=== PATIENT | female | born 1980 | race Caucasian/White ===

== ENCOUNTER 2017-10-11 13:30 | Inpatient (IN) | payer OTHER ==
[~2017-10-11] VITALS: Ht 177.8 cm; Wt 81.6 kg
[2017-10-11] MEDS ORDERED: PROZAC40 MG PO (13:49)
[2017-10-11] MEDS ORDERED: CLONAZEPAM1 MG PO (13:50)
[2017-10-14] MEDS ORDERED: DOCUSATE SODIU100 MG PO (09:22)
[2017-10-14] MEDS ORDERED: GABAPENTIN800 MG PO (09:22)
[2017-10-14] MEDS ORDERED: AMOX-CLAV 875-1 EACH PO (09:23)
[2017-10-14] MEDS ORDERED: PERCOCET 5-3251 EACH PO (09:23)
[2017-10-14] MEDS ORDERED: ACETAMINOPHEN-1 EAC2 PO (11:09)
== END 2017-10-14 12:00 | disposition home or self-care (01) | DRG 520 ==
LOC: O/R 10-13 05:59 → SURH 10-13 09:45 → PED 10-13 15:19
PROVIDERS: Orthopaedic Surgery Orthopaedic Surgery of the Spine
PROC: 0ST20ZZ Resection of Lumbar Vertebral Disc, Open Approach (ICD-10-PCS; 2017-10-13)
PROC: 00NY0ZZ Release Lumbar Spinal Cord, Open Approach (ICD-10-PCS; principal; 2017-10-13 09:45)
DX: M47.26 Other spondylosis with radiculopathy, lumbar region (principal); M51.16 Intervertebral disc disorders with radiculopathy, lumbar region